=== PATIENT | female | born 1945 | race Caucasian/White ===

== ENCOUNTER 2019-10-19 10:22 | Day surgery (SDC) | payer BC, MEDICARE ==
[2019-10-19] MEDS ORDERED: Lactated Ringers 1,000 ML IV ONE (10:45)
[2019-10-19] MEDS ORDERED: Cyanocobalamin (Vitamin B12) 1,000 MCG/ML SDV IM ONE (11:00)
[2019-10-19] MEDS ORDERED: Glycopyrrolate 0.2 MG/ML 2 ML SDV IVPUSH ONE (11:27)
[2019-10-19] MEDS ORDERED: MVI, Adult with Vitamin K 10 ML, Thiamine 200 MG, Chromium/Copper/Mang/Selen/Zn 1 ML in... IV ONE ×4 (11:45)
[2019-10-19] MEDS ORDERED: fentaNYL 100 MCG/2 ML SDV ONE (12:50)
[2019-10-19] MEDS ORDERED: Propofol 200 MG/20 ML SDV ONE (12:53)
[2019-10-19] MEDS ORDERED: Pantoprazole 40 MG Vial IVPUSH ONE (13:08)
[2019-10-19] MEDS ORDERED: Iopamidol 612 MG/ML 100 ML Bottle IV PRN (13:50)
[2019-10-19] MEDS ORDERED: Sodium Chloride 0.9% 10 ML Syringe FLUSH SCH (14:00)
[2019-10-19] MEDS ORDERED: Iopamidol 612 MG/ML 30 ML SDV PO ONE (14:08)
--- NOTE | 2019-10-19 14:47 | CRLCT ---
Indication: Post prandial nausea and epigastric pain. Prior gastric bypass. Technique: Patient was administered 50 cc of water-soluble contrast and the volumetric acquisition was undertaken during bolus infusion of 99 cc of IV contrast. Comparison: None Findings: The CT images demonstrate minimal scarring within the lingula. There is mild distention of the distal esophagus proximal to the gastric pouch. The isolated stomach appears normal. There is no evidence of contrast extravasation which would indicate a leak and no evidence of inflammation within the tissue planes about the gastric bypass surgical site. The liver and spleen appear normal. There is no evidence pancreatitis. The gallbladder has been resected. The bile ducts are normal in size. The kidneys and adrenal glands appear normal. Atherosclerotic calcifications are noted throughout the aorta but there is no evidence of aneurysm or vascular dissection. There is no evidence of pathologic dilatation or inflammation within the small intestine. There are several diverticula within the sigmoid region but no evidence of diverticulitis. The uterus and ovaries appear normal as does the urinary bladder. Impression: Mild distention of the distal esophagus proximal to the gastric pouch. No evidence of an anastomotic leak or inflammatory change about the gastric bypass surgical site. Dictated by Otis Hong MD @ 10/19/2019 2:46:17 PM Please note that all CT scans at this facility use dose modulation, iterative reconstruction, and/or weight-based dosing when appropriate to reduce radiation dose to as low as reasonably achievable. Dictated by: Otis Hong MD @ 10/19/2019 14:46:22 (Electronically Signed)
[2019-10-19] MEDS ORDERED: Alum Hydrox/Mag Hydrox/Simeth 360 ML, Lidocaine 2% 60 ML PO SCH ×2 (16:00)
--- NOTE | 2019-10-22 12:44 | OR ---
DATE OF PROCEDURE: 10/19/2019 SURGEON: Luigi James MD PREOPERATIVE DIAGNOSIS: Epigastric pain. POSTOPERATIVE DIAGNOSIS: Epigastric pain associated with minimal inflammation within the gastric pouch. OPERATIVE PROCEDURE: Upper GI endoscopy. ANESTHESIA: IV sedation. INDICATION FOR PROCEDURE: This is a 73-year-old status post previous Dylan-en-Y gastric bypass presenting with some ongoing epigastric pain. She has presently been on proton pump inhibitor from some time, but still was having the above symptoms. The plan is to proceed with upper GI endoscopy with biopsies and/or dilation as indicated. Potential risks including bleeding and perforation were discussed, and the patient wishes to proceed. DETAILS OF PROCEDURE: The patient was taken to the operating room and placed in a left lateral decubitus position. IV sedation was administered, after which the upper GI endoscope was passed orally through the length of the esophagus and into the gastric pouch, from there roughly 20 cm into the Dylan limb. Findings included normal hypopharynx, larynx, upper esophageal sphincter, esophageal body as well as the EG junction within the gastric pouch with perhaps some very mild inflammation present, but this was quite minimal and no erosions or ulcers were seen. At the gastrojejunostomy, no stricturing was present and there was no marginal ulcer present within the jejunum. At this point, the scope was then withdrawn, the above findings reconfirmed, and the procedure then concluded. Given the absence of significant findings, the patient underwent a CT scan of the abdomen with both oral and IV contrast which showed no abnormalities. At this point, the plan will be to add proton pump inhibitors and Carafate 500 mg dissolved in water q.i.d. taken on an empty stomach. We will also send her home with 2 bottles of the mixture of 2 ounces of viscous Xylocaine with 10 ounces of Maalox to take 1 to 2 tablespoons before eating, and she will be following up with Vanessa Woodruff at [facility] in about 6 weeks, sooner if symptoms worsen. Luigi James MD /[id number]
== END 2019-10-19 16:01 | disposition home or self-care (01) ==
LOC: JP.SDS 10:22
PROVIDERS: ATTEND Surgery
DX: K91.850 Pouchitis (principal); Z98.84 Bariatric surgery status
CPT/HCPCS: 43235; 74177; A9270; C9113; J2704; J3010; J3411; J3420; J3490; J7030; J7120; Q9967; J7050